=== PATIENT | male | born 1950 | race Caucasian/White ===

== ENCOUNTER → 2016-08-02 | Outpatient (CLI) | payer MEDICARE ==
--- NOTE | 2016-08-02 13:07 | XR ---
EXAMINATION TYPE: XR chest 2V DATE OF EXAM: 08/02/2016 1:02 PM COMPARISON: 09/16/2014 TECHNIQUE: PA and lateral views submitted. HISTORY: Fever and cough FINDINGS: The lungs are clear and there is no pneumothorax, pleural effusion, or focal pneumonia. There is an interstitial pattern which appears chronic correlate chronic interstitial lung disease. Interstitial pneumonitis in the differential diagnosis. There is a rounded suprahilar soft tissue nodule. This ma y be related to superimposed structures although this appears different from the prior exam. IMPRESSION: 1. Interstitial pattern may be chronic correlate to exclude an interstitial or atypical pneumonia. 2. Questionable left suprahilar soft tissue mass or adenopathy recommend follow-up CT scan of the [facility]..
== END | disposition home or self-care (01) ==
LOC: RADXRMAIN 12:46
PROVIDERS: ATTEND Family Medicine
DX: R91.8 Other nonspecific abnormal finding of lung field (principal); R05 Cough; R50.9 Fever, unspecified
CPT/HCPCS: 71020; 87502

== ENCOUNTER → 2018-02-07 | Outpatient (CLI) | payer MEDICARE ==
[2018-02-07 07:45] LABS: Blood Urea Nitrogen 12 mg/dL (9-20)
--- NOTE | 2018-02-07 12:07 | CT ---
EXAMINATION TYPE: CT chest w con DATE OF EXAM: 02/07/2018 COMPARISON: Prior CT 09/16/2014 HISTORY: Solitary pulmonary nodule CT DLP: 573.5 mGycm Automated exposure control for dose reduction was used. CONTRAST: CT scan of the chest is performed with IV Contrast, patient injected with 100 mL of Isovue 300. FINDINGS: There is a prominent epicardial fat pad. LUNGS: Right upper lobe pulmonary nodule on axial image 16 subcentimeter in size is stable. No eviden t airspace disease, no pleural or pericardial effusion. MEDIASTINUM: There are no greater than 1 cm hilar or mediastinal lymph nodes. Heart size is stable, e nlarged No pericardial effusion is seen. There are coronary artery calcifications present. There i s a small hiatal hernia. AORTA: No additional significant abnormality is seen. OTHER: Splenic flexure of the left colon courses posterior to the spleen. Liver shows low attenuatio n possibly due to hepatic steatosis, patient is post cholecystectomy. IMPRESSION: Stable pulmonary nodule is benign within the right upper lobe. Additional findings above .
== END | disposition home or self-care (01) ==
LOC: RADCTMAIN 07:07
PROVIDERS: ATTEND Internal Medicine Critical Care Medicine
DX: R91.1 Solitary pulmonary nodule (principal)
CPT/HCPCS: 82565; 84520; 71260; 36415; Q9967

== ENCOUNTER 2018-05-16 07:47 | Day surgery (SDC) | payer MEDICARE ==
[2018-05-14 08:34] VITALS: BMI 34.8
[~2018-05-16 07:47] MED LIST: ALPRAZolam 0.25 MG TAB PO PRN; ALPRAZolam 0.5 MG TAB PO PRN; ASPIRIN 325 MG TAB PO ONE; ATORVASTATIN 80 MG TAB PO ONE; NITROGLYCERIN SL TABS 0.4 MG TAB SUBLINGUAL PRN; SODIUM CHLORIDE 0.9% 1,000 ML in EMPTY BAG 1 BAG IV ONE
[2018-05-16 08:39] VITALS: TEMP 98
[2018-05-16 08:50] LABS: Basophils % (A) 1 %; Eosinophils # (A) 0.2 k/uL (0-0.7); Eosinophils % (A) 4 %; HCT 44.3 % (39.0-53.0); HGB 14.4 gm/dL (13.0-17.5); Lymphocytes # (A) 1.4 k/uL (1.0-4.8); Lymphocytes % (A) 24 %; MCH 28.7 pg (25.0-35.0); MCHC 32.5 g/dL (31.0-37.0); MCV 88.5 fL (80.0-100.0); Mean Platelet Volume 7.6; Monocytes # (A) 0.3 k/uL (0-1.0); Monocytes % (A) 6 %; Neutrophils # (A) 3.6 k/uL (1.3-7.7); Neutrophils % (A) 63 %; Platelet Count 193 k/uL (150-450); RBC 5.01 m/uL (4.30-5.90); RDW 14.5 % (11.5-15.5); WBC 5.7 k/uL (3.8-10.6)
[2018-05-16 09:01] LABS: Anion Gap 6 mmol/L; Blood Urea Nitrogen 14 mg/dL (9-20); Calcium 8.7 mg/dL (8.4-10.2); Carbon Dioxide 24 mmol/L (22-30); Chloride 112 mmol/L (98-107); Glucose 99 mg/dL (74-99); Potassium 4.3 mmol/L (3.5-5.1); Sodium 142 mmol/L (137-145)
[2018-05-16] MEDS ORDERED: HEPARIN SODIUM 1,000 UN/ML (10ML VL) ONE (11:08)
[2018-05-16] MEDS ORDERED: VERAPAMIL 2.5 MG/ML 2 ML AMP ONE (11:08)
[2018-05-16] MEDS ORDERED: LIDOCAINE 1% INJ 10MG/ML (20 ML MDV) ONE (11:08)
[2018-05-16] MEDS ORDERED: fentaNYL (PF) 50 MCG/ML 2 ML AMP ONE (11:08)
[2018-05-16] MEDS ORDERED: fentaNYL (PF) 50 MCG/ML 2 ML AMP IVP ONE (11:40)
[2018-05-16] MEDS ORDERED: LIDOCAINE 2% INJ 20 MG/ML SQ ONE (11:44)
[2018-05-16] MEDS ORDERED: MIDAZOLAM 2 MG/2 ML VIAL IVP ONE (11:45)
[2018-05-16] MEDS: VERAPAMIL SYRINGE (5 MG/10 ML) INTRAARTER ONE ×2 (11:49→12:01)
[2018-05-16] MEDS ORDERED: IOPAMIDOL-370 100ML BTL INJ ONE (12:01)
[2018-05-16] MEDS ORDERED: RX INFO: IV CONTRAST WAS GIVEN 1 EACH MISC MISCELLANE PRN (12:21)
[2018-05-16] MEDS ORDERED: SODIUM CHLORIDE 0.9% 1,000 ML IV SCH (12:30)
[2018-05-16 12:57] VITALS: RESP 16
--- NOTE | 2018-05-16 13:59 | CC ---
CARDIAC CATHETERIZATION REPORT Mr. Martines is a 67-year-old male with known history of persistent atrial fibrillation, history of hypertension, hyperlipidemia, who has symptoms of dyspnea. He underwent myocardial perfusion imaging that revealed evidence of inducible ischemia involving the anterolateral wall. In view of that, recommendation made regarding cardiac catheterization. The procedure, risks and complication were discussed with the patient who is in full understanding and agreement. PROCEDURE: Patient was brought to the laboratory director in a fasting semi-sedated state after receiving fentanyl and Benadryl and achieving moderate conscious sedated state. Using Xylocaine anesthesia and Seldinger technique, a 6-Taiwanese sheath was introduced in the right radial artery. Selective right and left coronary angiography was performed using 5- Taiwanese 3.5 bend right and left Michael catheter, multiple views of the right coronary artery including hemiaxial views obtained. Following that 5-Taiwanese tight pigtail catheter was introduced in the left ventricle and a 30 degree TYSON view of the left ventricle was obtained. Following that, catheter and sheaths were removed. Hemostasis was obtained with deployment of a TR band. There was no immediate complication. Patient is returned to his room in stable condition. Of note, the patient received 5000 units of intravenous heparin as well as intra-arterial verapamil. FINDINGS: FLUOROSCOPY: There was significant calcification involving the left main and the left anterior descending artery. LEFT MAIN: This is a large-sized vessel bifurcating into left circumflex, left anterior descending artery. Left main coronary artery has no evidence of high-grade stenosis. LEFT ANTERIOR DESCENDING ARTERY: This is a large-sized vessel, reaching toward the apex with a wraparound apex segment giving rise to 2 diagonal branches. The first one is small in caliber. The second one is moderate in caliber. The takeoff of the second diagonal branch has a 20%-30% plaque. There is minimal plaque in the proximal LAD. LEFT CIRCUMFLEX: This is a nondominant vessel, giving rise to 4 obtuse marginal branches. The first obtuse marginal branch is very proximal. It is the largest in caliber. The proximal segment of that branch has a 40% to 50% plaque at the ostium. The rest of the vessel has no high-grade stenosis. RIGHT CORONARY ARTERY: This is a dominant vessel, bifurcating distally into PDA and posterolateral segment and branches. The right coronary artery in mid segment has mild intimal disease 10%-20% without any evidence of high-grade stenosis. LEFT VENTRICULOGRAM: Left ventriculogram was performed in 30 degree TYSON view and revealed normal left ventricular size and systolic function. Ejection fraction of 60%. There was no significant mitral regurgitation. HEMODYNAMICS: There was no gradient across the aortic valve. The left ventricular end- diastolic pressure was 16-18 mmHg. CONCLUSION: 1. Calcified left main and the LAD. 2. Mild triple-vessel coronary artery disease with mild disease in the ostium of the first obtuse marginal branch. 3. Normal left ventricular size and systolic function. RECOMMENDATION: In view of finding anatomy, I recommend continue medical therapy with the aggressive risk modifications being initiated. Those findings and recommendation were discussed with the patient and his family who are in full understanding and agreement. Duration of procedure is 22 minutes. MMODL / IJN: [id number] /
[2018-05-16] MEDS ORDERED: METOPROLOL SUCCINATE (ER) 50 MG TAB.ER.24H PO SCH (16:00)
[2018-05-16] MEDS ORDERED: GABAPENTIN 100 MG CAP PO SCH (16:00)
[2018-05-16 17:13] VITALS: BP 118/72; PULSE 62
[2018-05-16] MEDS ORDERED: ALLOPURINOL 100 MG TAB PO SCH (21:00)
[2018-05-16] MEDS ORDERED: ATORVASTATIN 20 MG TAB PO SCH (21:00)
[2018-05-17] MEDS ORDERED: WARFARIN 5 MG TAB PO SCH (12:22)
[2018-05-20] MEDS ORDERED: WARFARIN 5 MG TAB PO SCH (12:22)
== END 2018-05-16 17:14 | disposition home or self-care (01) ==
LOC: CATHCVL 07:47
PROVIDERS: ATTEND Internal Medicine Interventional Cardiology
DX: I25.10 Atherosclerotic heart disease of native coronary artery without angina pectoris (principal); R94.39 Abnormal result of other cardiovascular function study; I10 Essential (primary) hypertension; E78.2 Mixed hyperlipidemia; I48.1 Persistent atrial fibrillation; Z79.01 Long term (current) use of anticoagulants; Z79.899 Other long term (current) drug therapy; Z82.49 Family history of ischemic heart disease and other diseases of the circulatory system; Z87.891 Personal history of nicotine dependence
CPT/HCPCS: 93458; 80048; 85025; 85610; C1894; C1769; J2001; J2250; J3010; J1644; Q9967

== ENCOUNTER → 2018-12-06 | Outpatient (CLI) | payer MEDICARE ==
--- NOTE | 2018-12-06 11:18 | MR ---
EXAMINATION TYPE: MR lumbar spine wo con DATE OF EXAM: 12/06/2018 COMPARISON: 08/12/2015 HISTORY: Low back pain, disc disorder, spinal stenosis TECHNIQUE: T1 and T2 axial and sagittal images of the lumbar spine are submitted. FINDINGS: There is no abnormal signal seen within the visualized spinal cord or paraspinal soft tissu es. There is moderate to severe degenerative disc disease L5-S1 similar to the prior exam. Disc desic cation L1-L2 noted. Previously noted retrolisthesis of L4 on L5 and L5 on S1 is stable. Multiple vert ebral body hemangioma noted. At L1-2 there is circumferential disc bulging greater laterally to left with mild left foraminal encr oachment. No Canal stenosis. At L2-3 there is hypertrophic change of the facets and disc bulging which appears similar to the prio r exam. Borderline central stenosis. Mild bilateral foraminal encroachment. Mild effacement of thecal sac. At L3-4 there is marked hypertrophic change of the facets and ligamentum flavum with disc bulging res ulting in borderline canal stenosis. Mild bilateral foraminal encroachment. At L4-5 there is broad-based central disc bulging with facet arthropathy and ligamentum flavum hypert rophy noted. Mild to moderate bilateral foraminal encroachment and mild central canal stenosis. At L5-S1 there is a broad-based moderate-sized left paracentral and lateral disc herniation with caud ad migration. It compresses the left traversing S1 nerve root. Facet arthropathy and ligamentum flavu m hypertrophy contribute to mild central stenosis and bilateral foraminal encroachment. IMPRESSION: 1. L4-5 there is mild canal stenosis due to disc bulging and hypertrophic changes with bilateral fora paula encroachment. 2. Moderate-sized left paracentral disc herniation with compression of the left S1 nerve root. Mild c entral stenosis and bilateral foraminal encroachment greater on the left.
== END | disposition home or self-care (01) ==
LOC: RADMRIMAIN 08:30
PROVIDERS: ATTEND Family Medicine
DX: M48.061 Spinal stenosis, lumbar region without neurogenic claudication (principal); M51.26 Other intervertebral disc displacement, lumbar region; G89.29 Other chronic pain
CPT/HCPCS: 72148

== ENCOUNTER 2019-06-05 12:30 | Day surgery (SDC) | payer MEDICARE ==
[2019-06-03 10:39] VITALS: BMI 34.2
[~2019-06-05 12:30] MED LIST changes: -ALPRAZolam 0.25 MG TAB PO PRN; -ALPRAZolam 0.5 MG TAB PO PRN; -ASPIRIN 325 MG TAB PO ONE; -ATORVASTATIN 80 MG TAB PO ONE; +DEXAMETHASONE SOD PHOSPHATE 10 MG/ML 1 ML VIAL IV ONE; +HYDROmorphone 0.5 MG/0.5 ML SYRINGE IVP PRN; +LACTATED RINGERS 1,000 ML IV SCH; +LIDOCAINE 1% 20 ML VIAL (10MG/ML) FOR IV START INTRADERMA PRN; +MIDAZOLAM 2 MG/2 ML VIAL IV PRN; -NITROGLYCERIN SL TABS 0.4 MG TAB SUBLINGUAL PRN; +ONDANSETRON 4 MG/2 ML VIAL IVP ONE; +Pre Op ABX Message 1 EACH MISC MISCELLANE ONE; +SCOPOLAMINE 1.5MG/72HR PATCH TRANSDERM ONE; -SODIUM CHLORIDE 0.9% 1,000 ML in EMPTY BAG 1 BAG IV ONE
[2019-06-05 13:16] LABS: INR 1.1 (<1.2); Prothrombin Time 10.9 sec (9.0-12.0)
[2019-06-05] MEDS ORDERED: fentaNYL (PF) 50 MCG/ML 2 ML AMP ONE (14:15)
[2019-06-05] MEDS ORDERED: PROPOFOL 10 MG/ML 20 ML VIAL IV ONE (14:15)
[2019-06-05] MEDS ORDERED: ceFAZolin 1,000 MG VIAL ONE (14:15)
[2019-06-05] MEDS ORDERED: MIDAZOLAM 2 MG/2 ML VIAL ONE (14:15)
[2019-06-05] MEDS ORDERED: SUCCINYLCHOLINE CHLORIDE 100 MG/5 ML SYR IV ONE (14:15)
[2019-06-05] MEDS ORDERED: LIDOCAINE 1% INJ 10MG/ML (20 ML MDV) ONE (14:15)
[2019-06-05] MEDS ORDERED: ESMOLOL 100 MG/10 ML VIAL ONE (14:15)
[2019-06-05] MEDS ORDERED: BUPIVACAINE (PF) 0.25% 30 ML VIAL SQ ONE ×3 (14:48→15:31)
--- NOTE | 2019-06-05 16:19 | P.OP ---
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 Modified Romero Marcio bunionectomy right foot 2. Arthroplasty procedure distal interphalangeal joint second digit right foot 3. Partial phalangectomy interphalangeal joint foot 4. Arthroplasty procedure fifth digit left foot Anesthesia: GETA Estimated Blood Loss (ml): 3 Operative Findings: Unremarkable Description of Procedure: On the date of surgery the patient was taken to the operating room in good condition placed on the operating table supine position where an IV was started and unrelenting anesthesia was administered Patient's feet and ankles were then prepped and draped in the usual aseptic manner over heavy web roll padding ankle tourniquets were placed above the ma lleoli of the patient's ankles. At this point in time attention was directed to the patient's right foot where the patient's right foot and ankle were elevated and exsanguinated of blood and after approximately 1 minutes. A time the ankle tourniquet was inflated to approximately 250 mmHg At this point in time attention was directed to the dorsal aspect of the patient's right foot where an approximately 6 cm dorsal linear incision was made the incision was deepened via sharp dissection down through the level of the subcutaneous tissue layers all neurovascular structures encountered were ident ified isolated and were retracted and any bleeding vessels were clamped electrocauterized. Throughout the surgical procedure copious amounts of sterile saline solution was used to irrigate the surgical site. Dissection was then carried deep down to level PERIOSTEAL STRUCTURES OVERLYING THE FIRST METATARSAL PHALANGEAL JOINT. THESE WERE INCISED UTILIZING AN INVERTED L INCISION AND UNDERSCORED AND RETRACTED FROM THE UNDERLYING BONE HYPEROSTOSIS PRESENT ON THE MEDIAL SIDE OF THE FIRST METATARSAL HEAD WAS THEN RESECTED FLUSH IN LINE WITH THE SHAFT OF THE FIRST METATARSAL AND REMOVED IN TOTAL FROM THE SURGICAL SITE THIS POINT IN TIME ATTENTION WAS DIRECTED TO THE DISTAL ASPECT OF THE INCISION WHERE DISSECTION WAS CARRIED DEEP DOWN TO LEVEL Periosteal Structures Overlying the Proximal Phalanx These Were Incised in Line with the Original Skin Incision and Underscored and Retracted from the Underlying Bone. A Dorsal to Plantar V Osteotomy Was Performed with the Stuart of the V Being Directed Laterally Though Care Was Taken Not to Disrupt the Lateral Cortex the Base of the V Was Directed Medially. It Measured Approximately 2-3 Mm at Its Widest Extent upon Completion of This Through And Through Osteotomy the Encompass Wedge of Bone Was Removed in Total from the Surgical Site. To Surgical Drill Holes Were Then Fashioned on the Dorsal Medial Side of the Proximal Phalanx and Fixated and Anatomically Closed in Opposed Position with Double Strength Monofilament Stainless Steel [id number]. Upon Completion of This the Hallux Was Seen to Maintain a Rectus Position. At This Point in Time Redundant Capsule on the Medial Side of the First Metatarsal Head Was Removed Area Capsule and Periosteal Structures Then Coaptated and Maintained Utilizing 3-0 Vicryl and 2-0 Vicryl Simple Interrupted Suture Subcutaneous Tissue Layers Were Coaptated and Maintained Utilizing 3-0 Vicryl Simple Interrupted Suture and the Skin Was Closed Utilizing 4-0 Nylon Simple Interrupted Suture Inch Was Directed to the Dorsal Aspect of the Distal Interphalangeal Joint Second Digit of the Right Foot Where an Approximately 1.25 Cm Incision Was Made the Incision Was Deepened down through the Level of Subcutaneous Tissue Layers All Neurovascular Structures Encountered Were Identified Isolated and Were Retracted and Any Bleeding Vessels Were Clamped Electrocauterized Dissection Was Carried Deep down to Level of the Extensor Digitorum Longus Tendon at the Level of This the Interphalangeal Joint These Were Incised Transversely in Line with the Joint Collateral Ligaments on Either Side of the Joint Were Incised the Head of the Middle Phalanx Was Then Developed through the Incision Site and Resected It a 90 Angle Utilizing Bone-Cutting Forceps throughout the Surgical Procedure Copious Amounts Sterile Saline Solution Was Used To Irrigate the Surgical Site the Ends of the Tendon Were Then Coaptated and Maintained Utilizing 3-0 Vicryl Simple Interrupted Suture and the Skin Was Closed Utilizing 4-0 Nylon Area Surgical Sites Were Then Covered with Adaptic Kerlix Fluffs Four-Inch Conformer and 4 Inch Coban Ankle Tourniquet to the Patient's Right Ankle Was Deflated and Adequate Hemostatic Return Was Seen in All Digits the Patient's Right Foot, specifically the hallux and the second digit. At this point in time attention was directed to the patient's left foot where the patient's left foot and ankle were elevated and exsanguinated of blood and after approximately 1 minutes. A time the ankle tourniquet to the left ankle was inflated to approximately 250 mmHg At this point in time attention was directed to the medial side of the hallux of the patient's left foot where an approximately 2 cm linear incision was made the incision was deepened via sharp dissection down through the level of the subcutaneous tissue layers the incision was placed on the medial side of the digit but more plantar than dorsal dissection was carried deep down to level PERIOSTEAL STRUCTURES ON THE MEDIAL SIDE OF THE INTERPHALANGEAL JOINT OF THE LEFT HALLUX THE STRUCTURES WERE UNDERSCORED AND RETRACTED FROM THE UNDERLYING BONE. A ROTARY BUR WAS INTRODUCED AND THE HYPEROSTOSIS PRESENT ON THE PLANTAR MEDIAL SIDE OF THE INTERPHALANGEAL JOINT WAS CRATERIZED. UPON COMPLETION OF THIS SURGICAL SITE WAS FLUSHED WITH COPIOUS AMOUNTS STERILE SALINE SOLUTION CAPSULE AND PERIOSTEAL STRUCTURES WERE COAPTATED AND MAINTAINED UTILIZING 3-0 VICRYL SIMPLE INTERRUPTED SUTURE AND THE SKIN WAS CLOSED UTILIZING 4-0 NYLON SIMPLE INTERRUPTED SUTURE AT THIS POINT IN TIME ATTENTION WAS DIRECTED THE FIFTH DIGIT LEFT FOOT WHERE AN APPROXIMATELY 2-1/2 CM LINEAR INCISION WAS MADE INCISION WAS DEEPENED VIA SHARP DISSECTION DOWN THROUGH THE LEVEL OF THE SUBCUTANEOUS TISSUE LAYERS ALL NEUROVASCULAR STRUCTURES ENCOUNTERED WERE IDENTIFIED ISOLATED AND WERE RETRACTED AND ANY BLEEDING VESSELS WERE CLAMPED ELECTROCAUTERIZED DISSECTION WAS THEN CARRIED DEEP DOWN TO THE LEVEL OF THE EXTENSOR DIGITORUM LONGUS TENDON WHICH WAS INCISED SHARPLY AT THE LEVEL OF THE PROXIMAL INTERPHALANGEAL JOINT THE ENDS OF THE TENDON WERE UNDERSCORED AND RETRACTED BOTH PROXIMALLY AND DISTALLY. COLLATERAL LIGAMENTS ON EITHER SIDE OF THE PROXIMAL INTERPHALANGEAL JOINT WERE INCISED SHARPLY AND THE HEAD OF THE CAPITAL FRAGMENT OF THE PROXIMAL PHALANX WAS DEVELOPED THROUGH THE INCISION SITE AND RESECTED IT A 90 ANGLE TO THE SHAFT OF THE PROXIMAL PHALANX AND REMOVED IN TOTAL FROM THE SURGICAL SITE. ENDS OF THE TENDON WERE THEN COAPTATED AND MAINTAINED UTILIZING 0 Vicryl simple interrupted suture and the skin was closed utilizing 4-0 nylon simple interrupted suture or surgical sites were covered with Adaptic Kerlix fluffs four-inch conform and 4 inch Coban. The tourniquet to the patient's left ankle was deflated and adequate hemostatic return was seen in all digits of the patient's left foot specifically the hallux and fifth digit. The patient tolerated the surgery and anesthesia well was taken to the recovery room in good postoperative condition
[2019-06-05 16:38] VITALS: TEMP 97.1
[2019-06-05] MEDS ORDERED: LACTATED RINGERS 1,000 ML IV ONE (16:46)
[2019-06-05 16:56] VITALS: RESP 16
[2019-06-05] MEDS ORDERED: HYDROcodone/APAP 5-325MG 1 EACH TAB PO ONE (17:12)
[2019-06-05 17:42] VITALS: BP 119/72; PULSE 74
== END 2019-06-05 17:54 | disposition home or self-care (01) ==
LOC: OR 12:30
PROVIDERS: ATTEND Podiatrist Foot & Ankle Surgery
DX: M20.11 Hallux valgus (acquired), right foot (principal); M89.372 Hypertrophy of bone, left ankle and foot; M20.5X1 Other deformities of toe(s) (acquired), right foot; M20.42 Other hammer toe(s) (acquired), left foot; K21.9 Gastro-esophageal reflux disease without esophagitis; I25.10 Atherosclerotic heart disease of native coronary artery without angina pectoris; I10 Essential (primary) hypertension; I48.91 Unspecified atrial fibrillation; E78.2 Mixed hyperlipidemia; F17.210 Nicotine dependence, cigarettes, uncomplicated; M51.36 Other intervertebral disc degeneration, lumbar region; M10.9 Gout, unspecified; Z90.49 Acquired absence of other specified parts of digestive tract; Z98.890 Other specified postprocedural states; Z79.01 Long term (current) use of anticoagulants; Z79.899 Other long term (current) drug therapy
CPT/HCPCS: 85610; 28298; 28285 ×2; 28124; J2250; J1100; J2405; J0690; J2001; J3010; J0330; J2704; J1170

== ENCOUNTER → 2019-11-26 | Outpatient (CLI) | payer MEDICARE ==
--- NOTE | 2019-11-26 10:52 | MR ---
EXAMINATION TYPE: MR shoulder RT wo con DATE OF EXAM: 11/26/2019 COMPARISON: None HISTORY: Right shoulder pain TECHNIQUE: Multiplanar, multisequence imaging of the right shoulder is performed without contrast. FINDINGS: There is a near complete through thickness tear of the supraspinatus tendon. There is diffu se tendinopathy of the infraspinatus tendon with partial through thickness tear involving the anterio r fibers at the insertion of the infraspinatus tendon. Subscapularis tendon intact. Biceps tendon is well situated in the bicipital groove but there is a small amount of fluid surroundi ng the biceps tendon compatible with tendinosis. The bony labrum are intact by nonarthrogram technique. There is hypertrophic arthropathy with a spur extending off the acromium result in impingement upon t he supraspinatus tendon and muscle. This fluid within the subacromial subdeltoid bursa noted. Glenohu meral ligaments intact. Benign cystic change involving the humeral head likely in the basis of chronic impaction. IMPRESSION: 1. Near complete through thickness tear of the supraspinatus tendon with no evidence of retraction 2. Tendinopathy infraspinatus tendon with partial through thickness tear anterior fibers at the inser tion 3. bicipital tendinosis. 4. Impingement secondary to AC joint arthropathy.
== END | disposition home or self-care (01) ==
LOC: RADMRIMAIN 09:30
PROVIDERS: ATTEND Orthopaedic Surgery
DX: M75.121 Complete rotator cuff tear or rupture of right shoulder, not specified as traumatic (principal); S46.811A Strain of other muscles, fascia and tendons at shoulder and upper arm level, right arm, initial encounter; M19.011 Primary osteoarthritis, right shoulder; M75.21 Bicipital tendinitis, right shoulder; M75.41 Impingement syndrome of right shoulder; M75.81 Other shoulder lesions, right shoulder

== ENCOUNTER → 2020-06-12 | Outpatient (CLI) | payer MEDICARE ==
--- NOTE | 2020-06-12 10:39 | MR ---
EXAMINATION TYPE: MR lumbar spine wo/w con DATE OF EXAM: 06/12/2020 COMPARISON: HISTORY: lumbago TECHNIQUE: Multiplanar, multisequence images of the lumbar spine were acquired utilizing 11.5 mL intravenous Rojas avist gadolinium contrast. L1-L2: Posterior disc bulge causes slight anterior mass effect on the thecal sac. No significant fora paula encroachment or spinal stenosis. L2-L3: Posterior disc bulge causes slight anterior mass effect on the thecal sac. There is some facet arthropathy with hypertrophy of ligamentum flavum. No significant foraminal encroachment or spinal s tenosis. L3-L4: There is a minimal broad-based disc bulge contacts the anterior thecal sac. Circumferential ex tension of endplate disc complex encroaches somewhat on the foramen on the right. L4-L5: Posterior disc bulge causes slight anterior mass effect on the thecal sac. There is some facet arthropathy change. Circumferential extension endplate disc complex encroaches somewhat on the neura l foramen on the right. L5-S1: There is a posterior disc herniation which extends from the central region to the left posteri or paracentral location causing anterolateral mass effect on the thecal sac, facet arthropathy with h ypertrophy of the ligamentum flavum is also present causing some minimal posterior lateral mass effec t on the thecal sac, there may be some encroachment on the left S1 nerve root, left lateral recess. C ircumferential extension of endplate disc complex results in foraminal encroachment greater on the le ft than on the right. No significant spinal stenosis. Lumbar segments are intact. No paraspinal masses are identified. Conus medullaris has a normal appe arance. Is multilevel spondylosis, some minimal endplate discogenic marrow signal changes are present . Multiple foci of increased signal present scattered within the vertebral bodies on T1 and T2-weight ed sequences likely representing hemangiomas. Loss of disc height signal is greatest at L5-S1 and L1- 2 consistent with disc desiccation and degenerative disc disease. No significant abnormal enhancement following contrast administration. IMPRESSION: Multilevel degenerative disc disease as described. Correlate for left S1 radiculopathy. Facet arthrop athy.
== END ==
LOC: RADMRIMAIN 09:32
PROVIDERS: ATTEND Physician Assistant
DX: M51.36 Other intervertebral disc degeneration, lumbar region (principal)
CPT/HCPCS: 72158; A9585

== ENCOUNTER → 2021-05-19 | Outpatient (CLI) | payer MEDICARE ==
--- NOTE | 2021-05-19 10:57 | US ---
EXAMINATION TYPE: US venous doppler duplex LE RT DATE OF EXAM: 05/19/2021 10:40 AM COMPARISON: NONE CLINICAL HISTORY: M79.89 Right leg swelling. leg swelling x 3 weeks, no h/o dvt, on thinners for A-fi b SIDE PERFORMED: Right TECHNIQUE: The lower extremity deep venous system is examined utilizing real time linear array sonog tavo with graded compression, doppler sonography and color-flow sonography. VESSELS IMAGED: Common Femoral Vein Deep Femoral Vein Greater Saphenous Vein * Femoral Vein Popliteal Vein Small Saphenous Vein * Proximal Calf Veins (* superficial vessels) Right Leg: Negative for DVT, 6.0cm+ popiteal cyst seen anterior to vessels IMPRESSION: No evidence for DVT.
== END | disposition home or self-care (01) ==
LOC: RADUSWWP 10:19
PROVIDERS: ATTEND Family Medicine
DX: M79.89 Other specified soft tissue disorders (principal)

== ENCOUNTER → 2021-06-11 | Outpatient (CLI) | payer MEDICARE ==
--- NOTE | 2021-06-11 07:27 | US ---
EXAMINATION TYPE: US abdomen complete DATE OF EXAM: 06/11/2021 COMPARISON: NONE CLINICAL HISTORY: R74.8 Abnormal levels of Serum Enzymes. EXAM MEASUREMENTS: Liver Length: 13.2 cm Gallbladder Wall: Surgically absent CBD: 0.5 cm Spleen: 12.2 cm Right Kidney: 12.3 x 4.5 x 5.7 cm Left Kidney: 12.1 x 4.9 x 5.5 cm Pancreas: Obscured by bowel gas Liver: wnl Gallbladder: Surgically absent CBD: wnl Spleen: wnl Right Kidney: No hydronephrosis or masses seen Left Kidney: No hydronephrosis or masses seen Upper IVC: wnl Abd Aorta: wnl The liver is homogenous. The intrahepatic portion of the IVC and proximal abdominal aorta are within normal limits Common bile duct is unremarkable. The visualized portions of the pancreas are homoge nous. The spleen is unremarkable. Kidneys are symmetric and free of hydronephrosis. No renal lesio ns are seen. IMPRESSION: No significant abnormality appreciated.
== END | disposition home or self-care (01) ==
LOC: RADUSWWP 07:01
PROVIDERS: ATTEND Family Medicine
DX: R74.8 Abnormal levels of other serum enzymes (principal)
CPT/HCPCS: 76700

== ENCOUNTER → 2022-02-15 | Outpatient (CLI) | payer MEDICARE ==
--- NOTE | 2022-02-15 13:25 | XR ---
EXAMINATION TYPE: XR ribs LT w pa chest xray DATE OF EXAM: 02/15/2022 12:57 PM INDICATION: Patient age:Male; 71 years old; Reason for study: R07.81 rib pain; COMPARISON: Radiograph 02/24/2017. TECHNIQUE: Frontal and oblique views of the left ribs with frontal chest radiograph. FINDINGS: Cortical buckling with linear lucency of left rib #9 near the costochondral junction seen o n 2 views without displacement. No additional fractures. Visualized portions of the chest are otherwi se unremarkable. IMPRESSION RIBS: Left rib 9 nondisplaced fracture near the costochondral junction.
== END | disposition home or self-care (01) ==
LOC: RADXRMAIN 12:30
PROVIDERS: ATTEND Family Medicine
DX: R07.81 Pleurodynia (principal)

== ENCOUNTER → 2023-02-03 | Outpatient (CLI) | payer MEDICARE ==
--- NOTE | 2023-02-03 14:29 | XR ---
EXAMINATION TYPE: XR bone survey complete DATE OF EXAM: 02/03/2023 COMPARISON: X-ray 02/15/2022 HISTORY: D47.2,R59.0,J98.4,M10.9 BONE SURVEY Bony calvarium : 2 views of the bony calvarium demonstrate. No sclerotic or lytic lesion identified. Spine: Two views of the cervical, thoracic and lumbar spines are submitted. No sclerotic or lytic le ruby identified. Remote left ninth rib fracture. PELVIS: Single view of the pelvis demonstrates. No sclerotic or lytic lesion identified. UPPER EXTREMITIES: Two views of the upper extremities. No sclerotic or lytic lesion identified. LOWER EXTREMITIES: 2 views of the lower extremities. No sclerotic or lytic lesion identified. IMPRESSION: No sclerotic or lytic lesion identified within the visualized osseous structures.
== END | disposition home or self-care (01) ==
LOC: RADXRMAIN 13:08
PROVIDERS: ATTEND Internal Medicine Hematology & Oncology
DX: D47.2 Monoclonal gammopathy (principal); R59.0 Localized enlarged lymph nodes; M10.9 Gout, unspecified; R91.1 Solitary pulmonary nodule
CPT/HCPCS: 77075

== ENCOUNTER 2023-04-09 14:40 | Emergency (ER) | payer MEDICARE ==
--- NOTE | 2023-04-09 15:05 | ED ---
General Adult HPI - General Chief complaint: Upper Respiratory Infection Stated complaint: Cold symptoms, right side chest pain Time Seen by Provider: 04/09/23 14:45 Source: patient, family Mode of arrival: ambulatory Limitations: no limitations - History of Present Illness Initial comments: Dictation was produced using [employer] dictation software. please excuse any grammatical, word or spelling errors. Chief Complaint: 72-year-old male presents emergency department for cough chest pain History of Present Illness: Is a 9-year-old male has history of left-sided pneumothorax. He is also multiple comorbidities for the last 1-2 days she's been having cough body aches. States that his cough is dry and nonproductive. Complains of some right-sided sharp chest pain is worse when he takes a deep breath or when he coughs. Had some night sweats last night however denies any fever, chills. No obvious sick contacts. Patient otherwise has no other complaints. The ROS documented in this emergency department record has been reviewed and confirmed by me. Those systems with pertinent positive or negative responses have been documented in the HPI. All other systems are other negative and/or noncontributory. - Related Data Home Medications Medication Instructions Recorded Confirmed Warfarin [Coumadin] 2.5 mg PO [id number] 09/05/14 06/05/19 Warfarin [Coumadin] 5 mg PO SPENCER 09/05/14 06/05/19 Gabapentin [Neurontin] 100 mg PO TID 01/26/16 06/05/19 Atorvastatin Calcium [Lipitor] 20 mg PO HS 05/14/18 06/05/19 allopurinoL [Zyloprim] 100 mg PO HS 05/14/18 06/05/19 Ergocalciferol [Vitamin D2] 50,000 unit PO Q7D 06/03/19 06/05/19 Metoprolol Tartrate 25 mg PO TID 06/03/19 06/05/19 Previous Rx's Medication Instructions Recorded Oseltamivir [Tamiflu] 75 mg PO Q12HR 5 Days #10 cap 04/09/23 Allergies Allergy/AdvReac Type Severity Reaction Status Date / Time No Known Allergies Allergy Verified 06/05/19 12:44 Review of Systems ROS Statement: Those systems with pertinent positive or pertinent negative responses have been documented in the HPI. ROS Other: All systems not noted in ROS Statement are negative. Past Medical History Past Medical History: Atrial Fibrillation, Hyperlipidemia, Hypertension, Osteoarthritis (OA) Additional Past Medical History / Comment(s): gout, psoriasis, Back pain. History of Any Multi-Drug Resistant Organisms: None Reported Past Surgical History: Appendectomy, Back Surgery, Cholecystectomy, Heart Catheterization, Orthopedic Surgery Additional Past Surgical History / Comment(s): 09/09/14 L shoulder acromioplasty, excision distal clavicle, rotator cuff repair, surgery on two fingers-rt hand index and middle fingers. Glaucoma Procedure., Cataracts. Past Anesthesia/Blood Transfusion Reactions: No Reported Reaction Past Psychological History: No Psychological Hx Reported Past Alcohol Use History: None Reported Past Drug Use History: None Reported - Past Family History Father Family Medical History: Cancer Additional Family Medical History / Comment(s): leukemia General Exam - General Exam Comments Initial Comments: PHYSICAL EXAM: General Impression: Alert and oriented x3, not in acute distress HEENT: Normocephalic atraumatic, extra-ocular movements intact, pupils equal and reactive to light bilaterally, mucous membranes moist. Cardiovascular: Heart regular rate and rhythm Chest: Able to complete full sentences, no retractions, no tachypnea Abdomen: abdomen soft, non-tender, non-distended, no organomegaly Musculoskeletal: Pulses present and equal in all extremities, no peripheral edema Motor: no focal deficits noted Neurological: CN II-XII grossly intact, no focal motor or sensory deficits noted Skin: Intact with no visualized rashes Psych: Normal affect and mood Limitations: no limitations Course Vital Signs 04/09/23 14:42 Temperature 97.9 F Pulse Rate 93 Respiratory 18 Rate Blood Pressure 139/71 O2 Sat by Pulse 97 Oximetry EKG Findings - EKG Comments: EKG Findings:: My EKG interpretation: Ventricular rate 90, A. fib, QRS 89, QTC 422. No CO prolongation, no QTC prolongation, no ST or T-wave changes noted. EKG compared to to 12/28/2014 showing no changes. Overall, this EKG is unremarkable Medical Decision Making - Medical Decision Making Was pt. sent in by a medical professional or institution (, PA, PRECISION IN[employer]UMENT [employer] TOOL [employer]KER, urgent care, hospital, or detention...) When possible be specific @ -No Did you speak to anyone other than the patient for history (EMS, parent, family, police, friend...)? What history was obtained from this source @ -No Did you review nursing and triage notes (agree or disagree)? Why? @ -I reviewed and agree with nursing and triage notes Were old charts reviewed (outside hosp., previous admission, EMS record, old EKG, old radiological studies, urgent care reports/EKG's, detention records)? Report findings @ -No old charts were reviewed Differential Diagnosis (chest pain, altered mental status, abdominal pain women, abdominal pain men, vaginal bleeding, musculoskeletal, weakness, fever, dyspnea, syncope, headache, dizziness, GI bleed, back pain, seizure, CVA, palpatations, mental health)? @ -Differential Dyspnea: Coronary syndrome, arrhythmia, tamponade, asthma, COPD, pulmonary embolism, pneumonia, pneumothorax, pulmonary effusion, anaphylaxis, diabetic ketoacidosis, flailed chest, pulmonary contusion, diaphragmatic rupture, anemia, neuromuscular, this is not meant to be an all-inclusive list. EKG interpreted by me (3pts min.). @ -None done X-rays interpreted by me (1pt min.). @ -chest xray shows no acute processes CT interpreted by me (1pt min.). @ -None done U/S interpreted by me (1pt. min.). @ -None done What testing was considered but not performed or refused? (CT, X-rays, U/S, labs)? Why? @ -None What meds were considered but not given or refused? Why? @ -None Did you discuss the management of the patient with other professionals (professionals i.e. , PA, [employer]KER, lab, RT, psych nurse, social media sr strategy manager, health officer, teacher, fisheries enforcement officer, clinical case manager)? Give summary @ -No Was smoking cessation discussed for >3mins.? @ -No Was critical care preformed (if so, how long)? @ -No Were there social determinants of health that impacted care today? How? (Homelessness, low income, unemployed, alcoholism, drug addiction, transportation, low edu. Level, literacy, decrease access to med. care, half-way, rehab)? @ -No Was there de-escalation of care discussed even if they declined (Discuss DNR or withdrawal of care, Hospice)? DNR status @ -No What co-morbidities impacted this encounter? (DM, HTN, Smoking, COPD, CAD, Cancer, CVA, ARF, Chemo, Hep., AIDS, mental health diagnosis, sleep apnea, morbid obesity)? @ -None Was patient admitted / discharged? Hospital course, mention meds given and route, prescriptions, significant lab abnormalities, going to OR and other pertinent info. @ -72-year-old male presents to the emergency department with URI type symptoms. Vital signs upon arrival are within acceptable limits. Patient well- appearing laboratory evaluation shows no leukocytosis. CBC and metabolic panel otherwise unremarkable. Influenza A is positive. Chest x-ray is unremarkable however radiology states that there is a subtle left lung opacity. Patient given Tamiflu. Discharged with prescription for Tamiflu. Advised follow-up with primary care doctor. Undiagnosed new problem with uncertain prognosis? @ -No Drug Therapy requiring intensive monitoring for toxicity (Heparin, Nitro, Insulin, Cardizem)? @ -No Were any procedures done? @ -No Diagnosis/symptom? Acute, or Chronic, or Acute on Chronic? Uncomplicated (without systemic symptoms) or Complicated (systemic symptoms)? @ -influenza Side effects of treatment? @ -No Exacerbation, Progression, or Severe Exacerbation? @ -No Poses a threat to life or bodily function? How? (Chest pain, USA, OR, pneumonia, PE, COPD, DKA, ARF, appy, cholecystitis, CVA, Diverticulitis, Homicidal, Suicidal, threat to staff... and all critical care pts) @ -No - Lab Data Result diagrams: 04/09/23 15:32 04/09/23 15:32 Lab Results 04/09/23 04/09/23 04/09/23 Range/Units 14:45 15:32 15:32 WBC 5.3 (3.8-10.6) k/uL RBC 4.73 (4.30-5.90) m/uL Hgb 13.6 (13.0-17.5) gm/dL Hct 41.7 (39.0-53.0) % MCV 88.2 (80.0-100.0) fL MCH 28.8 (25.0-35.0) pg MCHC 32.6 (31.0-37.0) g/dL RDW 14.6 (11.5-15.5) % Plt Count 160 (150-450) k/uL MPV 8.5 Neutrophils % 74 % Lymphocytes % 15 % Monocytes % 7 % Eosinophils % 2 % Basophils % 1 % Neutrophils # 3.9 (1.3-7.7) k/uL Lymphocytes # 0.8 L (1.0-4.8) k/uL Monocytes # 0.4 (0-1.0) k/uL Eosinophils # 0.1 (0-0.7) k/uL Basophils # 0.0 (0-0.2) k/uL Sodium 136 L (137-145) mmol/L Potassium 4.1 (3.5-5.1) mmol/L Chloride 101 (98-107) mmol/L Carbon Dioxide 24 (22-30) mmol/L Anion Gap 11 mmol/L BUN 14 (9-20) mg/dL Creatinine 0.75 (0.66-1.25) mg/dL Est GFR (CKD-EPI)AfAm >90 (>60 ml/min/1.73 sqM) Est GFR (CKD-EPI)NonAf >90 (>60 ml/min/1.73 sqM) Glucose 106 H (74-99) mg/dL Calcium 8.5 (8.4-10.2) mg/dL Influenza Type A (PCR) Detected A (Not Detectd) Influenza Type B (PCR) Not Detected (Not Detectd) RSV (PCR) Not Detected (Not Detectd) SARS-CoV-2 (PCR) Not Detected (Not Detectd) Disposition Clinical Impression: Influenza Disposition: HOME SELF-CARE Condition: Fair Instructions (If sedation given, give patient instructions): Influenza (ED) Prescriptions: Oseltamivir [Tamiflu] 75 mg PO Q12HR 5 Days #10 cap Is patient prescribed a controlled substance at d/c from ED?: No Referrals: Adenike Jacobs MD [Primary Care Provider] - 1-2 days Time of Disposition: 16:49
[2023-04-09 15:28] VITALS: RESP 18; TEMP 97.9
[2023-04-09 15:57] LABS: Basophils % (A) 1 %; Eosinophils # (A) 0.1 k/uL (0-0.7); Eosinophils % (A) 2 %; HCT 41.7 % (39.0-53.0); HGB 13.6 gm/dL (13.0-17.5); Lymphocytes # (A) 0.8 k/uL (1.0-4.8); Lymphocytes % (A) 15 %; MCH 28.8 pg (25.0-35.0); MCHC 32.6 g/dL (31.0-37.0); MCV 88.2 fL (80.0-100.0); Mean Platelet Volume 8.5; Monocytes # (A) 0.4 k/uL (0-1.0); Monocytes % (A) 7 %; Neutrophils # (A) 3.9 k/uL (1.3-7.7); Neutrophils % (A) 74 %; Platelet Count 160 k/uL (150-450); RBC 4.73 m/uL (4.30-5.90); RDW 14.6 % (11.5-15.5); WBC 5.3 k/uL (3.8-10.6)
--- NOTE | 2023-04-09 16:01 | XR ---
EXAMINATION TYPE: XR chest 2V DATE OF EXAM: 04/09/2023 3:22 PM CLINICAL INDICATION:Male, 72 years old with history of cough ,pleurisy; COMPARISON: Chest radiographs from 02/15/2022. TECHNIQUE: XR chest 2V Frontal and lateral views of the chest. FINDINGS: Lungs/Pleura: There is no evidence of pleural effusion, focal consolidation, or pneumothorax. Pulmonary vascularity: Unremarkable. Heart/mediastinum: Cardiomediastinal silhouette is unremarkable. Musculoskeletal: No acute osseous pathology. IMPRESSION: And left lung base subtle opacities correlate for pneumonia.e
[2023-04-09 16:12] LABS: African American GFR (CKD) >90 (>60 ml/min/1.73 sqM); Anion Gap 11 mmol/L; Blood Urea Nitrogen 14 mg/dL (9-20); Calcium 8.5 mg/dL (8.4-10.2); Carbon Dioxide 24 mmol/L (22-30); Chloride 101 mmol/L (98-107); Glucose 106 mg/dL (74-99); Non-African American GFR(CKD) >90 (>60 ml/min/1.73 sqM); Potassium 4.1 mmol/L (3.5-5.1); Sodium 136 mmol/L (137-145)
[2023-04-09] MEDS ORDERED: OSELTAMIVIR 75 MG CAP PO STA (16:43)
[2023-04-09 19:27] VITALS: BP 119/73; PULSE 85
== END 2023-04-09 17:19 | disposition home or self-care (01) ==
LOC: EC 14:40
DX: J10.1 Influenza due to other identified influenza virus with other respiratory manifestations (principal); I10 Essential (primary) hypertension; E78.5 Hyperlipidemia, unspecified; I48.91 Unspecified atrial fibrillation; M19.90 Unspecified osteoarthritis, unspecified site; M10.9 Gout, unspecified; Z20.822 Contact with and (suspected) exposure to COVID-19; Z79.01 Long term (current) use of anticoagulants; Z79.899 Other long term (current) drug therapy; Z90.49 Acquired absence of other specified parts of digestive tract
CPT/HCPCS: 36415; 71046; 80048; 85025; 87636; 93005; 99285